=== PATIENT | female | born 1975 | race Caucasian/White ===

== ENCOUNTER 2017-01-16 13:03 | Emergency (ER) | payer MEDICAID ==
[~2017-01-16] VITALS: Ht 175.3 cm; Wt 83.9 kg
[~2017-01-16 13:03] MED LIST: ALPR1TAB2 PO; CLON0.5T4 PO; GABA-531 PO; GABA600T PO; OMEP20CA4 PO; RISPERIDONE; TIZA4TAB11 PO; XANAX; ZOLP10TA2 PO
[2017-01-16 13:09] VITALS: BP_SYST 163
[2017-01-16] MEDS ORDERED: KETOROLAC TROMETHAMINE 60 MG/2 ML VIAL IM ONE (13:30)
[2017-01-16 13:47] LABS: BILIRUBIN,URINE NEGATIVE (NEGATIVE); BLOOD, URINE 3+ (NEGATIVE); CLARITY/URINE CLEAR (CLEAR); COLOR,URINE YELLOW (YELLOW); GLUCOSE,URINE NEGATIVE (NEGATIVE); KETONES,URINE NEGATIVE (NEGATIVE); LEUKOCYTE ESTERASE ,URINE TRACE (NEGATIVE); NITRITE, URINE NEGATIVE (NEGATIVE); PH,URINE 5.5 (5.0-8.0); PROTEIN URINE TRACE (NEGATIVE)
[2017-01-16 14:02] LABS: BACTERIA,URINE MODERATE /HPF (None Seen); MUCUS,URINE 1+ /LPF (None Seen); RBC,URINE 20-50 /HPF (0-3); WBC,URINE 20-50 /HPF (0-3)
[2017-01-16 14:21] VITALS: BP_SYST 161
== END 2017-01-16 14:21 | disposition home or self-care (01) ==
LOC: SED 13:03
DX: G89.29 Other chronic pain (principal); M54.5 Low back pain; N39.0 Urinary tract infection, site not specified; R03.0 Elevated blood-pressure reading, without diagnosis of hypertension; K21.9 Gastro-esophageal reflux disease without esophagitis; Z79.899 Other long term (current) drug therapy; Z88.8 Allergy status to other drugs, medicaments and biological substances
CPT/HCPCS: 81000; 87086; 87186; 96372; 99284; J1885

== ENCOUNTER 2018-04-16 20:43 | Emergency (ER) | payer MEDICAID ==
[~2018-04-16] VITALS: Ht 177.8 cm; Wt 86.2 kg
[~2018-04-16 20:43] MED LIST changes: +CLON0.5T12 PO; -CLON0.5T4 PO
[2018-04-16 21:10] VITALS: BP_SYST 103
--- NOTE | 2018-04-16 21:17 | NUR ---
Patient to ER bed 4 to gown for evaluation. Side rails up. Report given to SOURAV Smith.
--- NOTE | 2018-04-16 21:17 | NUR ---
Pt c/o allergic reaction after taking [place]. Pt states that it felt like she was swallowing her tongue. Denies SOB or rash. Able to speak in full sentences without difficulty. Airway patent, respirations even and non-labored, NAD. No swelling to tongue noted.
--- NOTE | 2018-04-16 21:50 | NUR ---
Dr. Lopez at bedside.
[2018-04-16] MEDS ORDERED: DIPHENHYDRAMINE HCL 25 MG CAPSULE PO ONE (22:00)
[2018-04-16 22:10] VITALS: BP_SYST 113
--- NOTE | 2018-04-16 22:10 | NUR ---
Patient given written and verbal discharge instructions and verbalizes understanding. ER MD discussed with patient the results and treatment provided. Patient in stable condition. ID arm band removed. No Rx given. Patient educated on pain management and to follow up with PMD. Pain Scale 0/10. Opportunity for questions provided and answered. Medication side effect fact sheet provided.
== END 2018-04-16 22:10 | disposition home or self-care (01) ==
LOC: SED 20:43
DX: T43.595A Adverse effect of other antipsychotics and neuroleptics, initial encounter (principal); K21.9 Gastro-esophageal reflux disease without esophagitis; Z86.79 Personal history of other diseases of the circulatory system; Z88.8 Allergy status to other drugs, medicaments and biological substances; Z79.899 Other long term (current) drug therapy; Y92.89 Other specified places as the place of occurrence of the external cause
CPT/HCPCS: 99282; Q0163

== ENCOUNTER 2019-08-03 15:44 | Emergency (ER) | payer MEDICAID ==
[~2019-08-03] VITALS: Ht 177.8 cm; Wt 72.6 kg
[2019-08-03 16:20] VITALS: BP_SYST 130
--- NOTE | 2019-08-03 16:31 | NUR ---
Patient triaged and placed in waiting room. VSS and patient appears in no acute distress at this time. Accompanied by SELF, awaiting available bed, and MD notified of need for MSE.
--- NOTE | 2019-08-03 16:47 | NUR ---
Patient to ER bed 7 to gown for evaluation. Side rails up. Report given to SOURAV Barry.
--- NOTE | 2019-08-03 16:50 | NUR ---
PATIENT PRESENTED TO ER C/O VAGINAL PAIN. PATIENT AMBULATORY TO ER, AFEBRILE, SKIN PINK & WARM PAIN 10/27, DENIES N/V/D. pATIENT STATES SHE HAS PAIN AND SWELLING TO LEFT EXTERIOR VAGINA TODAY.
--- NOTE | 2019-08-03 16:54 | NUR ---
Pelvic exam performed by DR. ALICEA with SOURAV ZAMBRANO at bedside for entire examination. Patient tolerated procedure WELL. Patient assisted to position of comfort after examination.
[2019-08-03] MEDS ORDERED: LIDOCAINE 1% 10 MG/ML, 20 ML MDV SUBCUT ONE (17:00)
[2019-08-03] MEDS ORDERED: BACITRACIN 1 GM OINT TP ONE (17:00)
[2019-08-03] MEDS ORDERED: cefTRIAXone 1 GM IVPB PREMIX 50 ML IV ONE (17:00)
--- NOTE | 2019-08-03 17:10 | NUR ---
Site to vagina cleansed with sterile water. Site measures approximately 1cm. bacitracin & pad dressing applied.
[2019-08-03] MEDS ORDERED: MORPHINE 4 MG/ML INJ. SYRINGE IVP ONE (17:30)
--- NOTE | 2019-08-03 17:30 | NUR ---
# 20 gauge angiocath placed to LEFT ARM. Use of asceptic technique. Opsite placed over site. Blood return noted. Blood for lab drawn from site. Flushed with 10 cc of normal saline. No evidence of infiltration noted. Patient tolerated well.
--- NOTE | 2019-08-03 17:50 | NUR ---
REPORT TO ELVIA BENJAMIN
[2019-08-03 18:10] LABS: HEMATOCRIT 47.3 % (36-48); MEAN CORPUSCULAR HEMOGLOBIN 31 pg (27-31); MEAN CORPUSCULAR HGB CONC 34 % (32-36); MEAN CORPUSCULAR VOLUME 93 fL (79.0-98.0); PLATELET COUNT (AUTO) 599 K/uL (130-430); RED CELL DISTRIBUTION WIDTH 13.9 % (9.0-15.0); WHITE BLOOD COUNT (AUTO) 18.5 K/uL (4.8-10.8)
[2019-08-03 18:20] LABS: CREATININE 0.85 mg/dL (0.55-1.30); POTASSIUM 3.4 mmol/L (3.5-5.1)
[2019-08-03 18:26] LABS: TOTAL BILIRUBIN 0.7 mg/dL (0.0-1.0)
[2019-08-03 18:32] LABS: BAND % (MANUAL) 1 % (0-6); BASOPHILS % (MANUAL) 0 % (0-2); EOSINOPHILS % (MANUAL) 0 % (0-7); LYMPHOCYTES % (MANUAL) 3 % (20-46); MONOCYTES % (MANUAL) 4 % (0-11)
--- NOTE | 2019-08-03 18:47 | NUR ---
ALERT, CALM, RESP UNLABORED, SKIN WARM AND DRY. COMMUNICATES CLEARLY IN FULL COMPLETE SENTENCES, NO COMPLAINTS. TOLERATING PO WELL. AWAITING UA RESULTS.
[2019-08-03 19:10] LABS: BILIRUBIN,URINE 2+ (NEGATIVE); BLOOD, URINE 3+ (NEGATIVE); GLUCOSE,URINE NEGATIVE (NEGATIVE); KETONES,URINE 1+ (NEGATIVE); LEUKOCYTE ESTERASE ,URINE NEGATIVE (NEGATIVE); NITRITE, URINE NEGATIVE (NEGATIVE); PH,URINE 6.5 (5.0-8.0); PROTEIN URINE 2+ (NEGATIVE)
[2019-08-03 19:23] LABS: CLARITY/URINE HAZY (CLEAR); COLOR,URINE AMBER (YELLOW)
[2019-08-03 19:25] LABS: BACTERIA,URINE FEW /HPF (None Seen); MUCUS,URINE None Seen /LPF (None Seen); WBC,URINE 0-3 /HPF (0-3)
[2019-08-03 19:39] VITALS: BP_SYST 154
--- NOTE | 2019-08-03 19:47 | NUR ---
Patient given written and verbal discharge instructions and verbalizes understanding. ER MD ALICEA discussed with patient the results and treatment provided. Patient in stable condition. ID arm band removed. IV catheter removed intact and dressing applied, no active bleeding. Rx of ABX/TYLENOL given. Patient educated on pain management and to follow up with PMD AND WILL RETURN TOMORROW TO HAVE PACKING REMOVED. Pain Scale 0/10. Opportunity for questions provided and answered. Medication side effect fact sheet provided.
== END 2019-08-03 19:39 | disposition home or self-care (01) ==
LOC: SED 15:44
DX: N75.0 Cyst of Bartholin's gland (principal); N76.0 Acute vaginitis; R30.0 Dysuria; G47.00 Insomnia, unspecified; K21.9 Gastro-esophageal reflux disease without esophagitis; Z86.73 Personal history of transient ischemic attack (TIA), and cerebral infarction without residual deficits; Z79.899 Other long term (current) drug therapy
CPT/HCPCS: 36415; 56420; 80053; 81000; 83605; 85007; 85027; 87040; 96365; 96375; 99284; J0696; J2001; J2270

== ENCOUNTER 2019-08-04 11:14 | Emergency (ER) | payer MEDICAID ==
[~2019-08-04] VITALS: Ht 177.8 cm; Wt 70.3 kg
[2019-08-04 11:31] VITALS: BP_SYST 132
--- NOTE | 2019-08-04 11:31 | NUR ---
Patient to ER bed 7 to gown for evaluation. Side rails up.
--- NOTE | 2019-08-04 11:35 | NUR ---
Patient presents to ER C/O wound re-check. Patient A&Ox4, ambulatory to ER, afebrile, skin pink and warm, denies N/V/D, pain 06/27. Patient presents to ER for follow-up vaginal abcess I&D 08/03/2019.
--- NOTE | 2019-08-04 11:40 | NUR ---
Vaginal wound exam performed by Dr. rGeen with Anusha BENJAMIN at bedside for entire examination. Patient tolerated procedure well . Patient assisted to position of comfort after examination. Wound to vagina, pink, packing not present, small amount of serosanguinus fluid draining.
[2019-08-04 12:01] VITALS: BP_SYST 138
--- NOTE | 2019-08-04 12:01 | NUR ---
Patient given written and verbal discharge instructions and verbalizes understanding. ER MD discussed with patient the results and treatment provided. Patient in stable condition. ID arm band removed. No Rx given. Patient educated on pain management and to follow up with PMD. Pain Scale 3/10. Opportunity for questions provided and answered. Medication side effect fact sheet provided.
== END 2019-08-04 12:01 | disposition home or self-care (01) ==
LOC: SED 11:14
DX: Z48.00 Encounter for change or removal of nonsurgical wound dressing (principal); K21.9 Gastro-esophageal reflux disease without esophagitis; F15.90 Other stimulant use, unspecified, uncomplicated; Z88.8 Allergy status to other drugs, medicaments and biological substances; Z79.899 Other long term (current) drug therapy
CPT/HCPCS: 99283

== ENCOUNTER 2022-02-11 11:15 | Emergency (ER) | payer MEDICAID ==
[~2022-02-11] VITALS: Ht 177.8 cm; Wt 79.4 kg
[~2022-02-11 11:15] MED LIST changes: -CLON0.5T12 PO; +CLON0.5T4 PO; -TIZA4TAB11 PO; +ZAN4 PO
[2022-02-11 11:56] VITALS: BP_SYST 168
[2022-02-11] MEDS ORDERED: HYDROcodone/ACETAMIN 5-325 MG TAB (NORCO/ VICODIN) PO ONE (14:30)
[2022-02-11] MEDS ORDERED: HYDR-3917 PO (15:05)
== END 2022-02-11 15:42 | disposition home or self-care (01) ==
LOC: SED 11:15
DX: S92.252A Displaced fracture of navicular [scaphoid] of left foot, initial encounter for closed fracture (principal); S93.402A Sprain of unspecified ligament of left ankle, initial encounter; W01.0XXA Fall on same level from slipping, tripping and stumbling without subsequent striking against object, initial encounter; Y93.B9 Activity, other involving muscle strengthening exercises; Y92.89 Other specified places as the place of occurrence of the external cause; Y99.8 Other external cause status
CPT/HCPCS: 99283